=== PATIENT | male | born 1955 | race Caucasian/White ===

== ENCOUNTER 2018-08-19 03:46 | Inpatient (IN) | payer MEDICARE, OTHER, BC ==
[2018-08-19] MEDS ORDERED: SODIUM CHLORIDE 0.9% 1L BAG IV* (03:59)
[2018-08-19 04:14] LABS: ADD MAN DIFF? NO
[2018-08-19 04:18] LABS: WHITE BLOOD COUNT 12.8 10^3/ul (4.8-10.8)
[2018-08-19 04:18] LABS: BASOPHILS % 0.3 % (0.0-2.0); EOSINOPHILS % 0.2 % (0.0-7.0); HEMOGLOBIN 14.1 g/dl (14.0-18.0); LYMPHOCYTES # 1.4 10^3/ul (0.8-2.9); MEAN CORPUSCULAR HGB CONC 34.4 g/dl (32.0-37.0); MEAN PLATELET VOLUME 12.5 fl (7.4-10.4); MONOCYTE # 1.1 10^3/ul (0.3-0.9); MONOCYTES % 8.8 % (0.0-11.0); NEUTROPHIL # 10.2 10^3/ul (1.6-7.5); NEUTROPHILS % 79.4 % (39.0-77.0); PLATELET COUNT 151 10^3/UL (140-415); RED BLOOD COUNT 4.41 10^6/ul (4.70-6.10); RED CELL DISTRIBUTION WIDTH 12.2 % (11.5-14.5)
[2018-08-19] MEDS: ACETAMINOPHEN 325 MG TAB PO ×5 (04:25→22:56)
[2018-08-19 04:33] LABS: ALANINE AMINOTRANSFERASE 35 IU/L (13-69); ALBUMIN 4.5 g/dl (3.3-4.9); ALBUMIN/GLOBULIN RATIO 1.12; ALKALINE PHOSPHATASE 121 IU/L (42-121); ANION GAP 11 (5-13); ASPARTATE AMINO TRANSFERASE 32 IU/L (15-46); BILIRUBIN,INDIRECT 0.7 mg/dl (0-1.1); BILIRUBIN,TOTAL 0.7 mg/dl (0.2-1.3); BLOOD UREA NITROGEN 16 mg/dl (7-20); CALCIUM 9.2 mg/dl (8.4-10.2); CARBON DIOXIDE 25 mmol/L (21-31); CHLORIDE 105 mmol/L (97-110); CREATININE 0.87 mg/dl (0.61-1.24); Estimated GFR > 60 mL/min (>60); GLUCOSE 129 mg/dl (70-220); SODIUM 141 mmol/L (135-144); TOTAL PROTEIN 8.5 g/dl (6.1-8.1)
[2018-08-19 04:40] LABS: INR 1.01; PROTIME 13.4 Sec (11.9-14.9)
[2018-08-19 04:41] LABS: PARTIAL THROMBOPLASTIN TIME 26.5 Sec (23.0-35.0)
[2018-08-19 04:44] LABS: URINE PH (Dip) POC 5.5 (5.0-8.5)
[2018-08-19 04:44] LABS: URINE BLOOD (Dip) POC Trace-intact (NEGATIVE); URINE GLUCOSE (Dip) POC Negative (NEGATIVE); URINE KETONES (Dip) POC Negative (NEGATIVE); URINE LEUKOCYTE EST (Dip) POC Trace (NEGATIVE); URINE NITRITE (Dip) POC Negative (NEGATIVE); URINE TOTAL PROTEIN POC Negative (NEGATIVE)
[2018-08-19 04:45] LABS: TROPONIN-I < 0.012 ng/ml (0.000-0.120)
[2018-08-19 05:09] LABS: ADD UMIC YES; UR ASCORBIC ACID NEGATIVE (NEGATIVE); UR BILIRUBIN (Dip) NEGATIVE (NEGATIVE); UR BLOOD (Dip) 1+ mg/dL (NEGATIVE); UR CLARITY CLEAR (CLEAR); UR COLOR YELLOW (YELLOW); UR GLUCOSE (Dip) NEGATIVE (NEGATIVE); UR KETONES (Dip) NEGATIVE (NEGATIVE); UR LEUKOCYTE ESTERASE (Dip) NEGATIVE Leu/ul (NEGATIVE); UR NITRITE (Dip) NEGATIVE (NEGATIVE); UR RBC 2 /HPF (0-5); UR SPECIFIC GRAVITY (Dip) 1.013 (1.003-1.030); UR TOTAL PROTEIN (Dip) NEGATIVE (NEGATIVE); UR UROBILINOGEN (Dip) NEGATIVE (NEGATIVE); UR WBC 15 /HPF (0-5)
[2018-08-19] MEDS: PIPER-TAZO 3.375 GM IV (PMX) 100 ML IVPB ×4 (07:02→23:43)
[2018-08-19] MEDS: SOD CHLORIDE 0.9% 2,070 ML IV (07:02)
[2018-08-19] MEDS: IBUPROFEN 600 MG TAB PO (07:03)
[2018-08-19 08:47] LABS: LACTIC ACID 2.8 mmol/L (0.5-2.0)
[2018-08-19] MEDS ORDERED: ONDANSETRON 4 MG INJ IV (09:30)
[2018-08-19] MEDS ORDERED: morphine 2 MG INJ IV (09:30)
[2018-08-19] MEDS ORDERED: ZOLPIDEM 5 MG TAB PO (10:00)
[2018-08-19 10:56] LABS: LACTIC ACID 1.9 mmol/L (0.5-2.0)
[2018-08-19] MEDS: SOD CHLORIDE 0.9% 1,000 ML IV ×2 (12:35→20:30)
[2018-08-19] MEDS: PANTOPRAZOLE (EC) 40 MG TAB PO (12:36)
[2018-08-19] MEDS: LISINOPRIL 5 MG TAB GTB (12:37)
[2018-08-19] MEDS: TAMSULOSIN (SR) 0.4 MG CAP PO (20:55)
[2018-08-20] MEDS: ACETAMINOPHEN 325 MG TAB PO ×3 (02:54→17:31)
[2018-08-20] MEDS: PIPER-TAZO 3.375 GM IV (PMX) 100 ML IVPB ×3 (05:45→17:30)
[2018-08-20] MEDS: SOD CHLORIDE 0.9% 1,000 ML IV ×2 (05:45→17:31)
[2018-08-20] MEDS: PANTOPRAZOLE (EC) 40 MG TAB PO (05:45)
[2018-08-20 06:00] LABS: ADD MAN DIFF? NO
[2018-08-20 06:08] LABS: BASOPHIL # 0.1 10^3/ul (0.0-0.1); BASOPHILS % 0.3 % (0.0-2.0); EOSINOPHILS % 0.1 % (0.0-7.0); HEMATOCRIT 36.9 % (42.0-52.0); HEMOGLOBIN 12.6 g/dl (14.0-18.0); LYMPHOCYTES # 0.9 10^3/ul (0.8-2.9); LYMPHOCYTES % 5.9 % (15.0-51.0); MEAN CORPUSCULAR HEMOGLOBIN 32.2 pg (29.0-33.0); MEAN CORPUSCULAR HGB CONC 34.1 g/dl (32.0-37.0); MEAN CORPUSCULAR VOLUME 94.4 fl (82.0-101.0); MEAN PLATELET VOLUME 12.8 fl (7.4-10.4); MONOCYTE # 1.3 10^3/ul (0.3-0.9); MONOCYTES % 8.8 % (0.0-11.0); NEUTROPHIL # 12.7 10^3/ul (1.6-7.5); NEUTROPHILS % 84.5 % (39.0-77.0); PLATELET COUNT 116 10^3/UL (140-415); RED BLOOD COUNT 3.91 10^6/ul (4.70-6.10); RED CELL DISTRIBUTION WIDTH 13.1 % (11.5-14.5)
[2018-08-20 06:08] LABS: WHITE BLOOD COUNT 15.1 10^3/ul (4.8-10.8)
[2018-08-20 06:28] LABS: ALANINE AMINOTRANSFERASE 48 IU/L (13-69); ALBUMIN 3.3 g/dl (3.3-4.9); ALBUMIN/GLOBULIN RATIO 1.13; ALKALINE PHOSPHATASE 92 IU/L (42-121); ANION GAP 5 (5-13); ASPARTATE AMINO TRANSFERASE 44 IU/L (15-46); BILIRUBIN,INDIRECT 0.8 mg/dl (0-1.1); BILIRUBIN,TOTAL 0.8 mg/dl (0.2-1.3); BLOOD UREA NITROGEN 13 mg/dl (7-20); CALCIUM 8.5 mg/dl (8.4-10.2); CARBON DIOXIDE 24 mmol/L (21-31); CHLORIDE 109 mmol/L (97-110); CREATININE 0.87 mg/dl (0.61-1.24); Estimated GFR > 60 mL/min (>60); GLUCOSE 111 mg/dl (70-220); MAGNESIUM 2.1 mg/dl (1.7-2.5); POTASSIUM 3.8 mmol/L (3.5-5.1); SODIUM 138 mmol/L (135-144); TOTAL PROTEIN 6.2 g/dl (6.1-8.1)
[2018-08-20 06:36] LABS: LACTIC ACID 0.9 mmol/L (0.5-2.0)
[2018-08-20] MEDS: LISINOPRIL 5 MG TAB GTB (08:37)
[2018-08-20] MEDS: IBUPROFEN 400 MG TAB GTB ×2 (14:12→21:38)
[2018-08-20] MEDS: TAMSULOSIN (SR) 0.4 MG CAP PO (21:34)
[2018-08-21] MEDS: PIPER-TAZO 3.375 GM IV (PMX) 100 ML IVPB ×4 (00:03→17:45)
[2018-08-21] MEDS: SOD CHLORIDE 0.9% 1,000 ML IV ×3 (02:30→22:30)
[2018-08-21] MEDS: PANTOPRAZOLE (EC) 40 MG TAB PO (05:50)
[2018-08-21 06:13] LABS: WHITE BLOOD COUNT 7.2 10^3/ul (4.8-10.8)
[2018-08-21 06:13] LABS: ABNORMAL IP MESSAGE 1; HEMATOCRIT 36.6 % (42.0-52.0); HEMOGLOBIN 12.4 g/dl (14.0-18.0); MEAN CORPUSCULAR HEMOGLOBIN 31.9 pg (29.0-33.0); MEAN CORPUSCULAR HGB CONC 33.9 g/dl (32.0-37.0); MEAN CORPUSCULAR VOLUME 94.1 fl (82.0-101.0); MEAN PLATELET VOLUME 13.4 fl (7.4-10.4); PLATELET COUNT 108 10^3/UL (140-415); POSITIVE DIFF @See below; RED BLOOD COUNT 3.89 10^6/ul (4.70-6.10); RED CELL DISTRIBUTION WIDTH 13.1 % (11.5-14.5)
[2018-08-21 06:32] LABS: ADD MAN DIFF? YES
[2018-08-21 06:38] LABS: ALANINE AMINOTRANSFERASE 44 IU/L (13-69); ALBUMIN 3.4 g/dl (3.3-4.9); ALBUMIN/GLOBULIN RATIO 0.94; ALKALINE PHOSPHATASE 120 IU/L (42-121); ANION GAP 7 (5-13); ASPARTATE AMINO TRANSFERASE 37 IU/L (15-46); BILIRUBIN,INDIRECT 0.4 mg/dl (0-1.1); BILIRUBIN,TOTAL 0.4 mg/dl (0.2-1.3); BLOOD UREA NITROGEN 13 mg/dl (7-20); CALCIUM 8.6 mg/dl (8.4-10.2); CARBON DIOXIDE 23 mmol/L (21-31); CHLORIDE 114 mmol/L (97-110); Estimated GFR > 60 mL/min (>60); GLUCOSE 113 mg/dl (70-220); MAGNESIUM 2.3 mg/dl (1.7-2.5); POTASSIUM 3.9 mmol/L (3.5-5.1); SODIUM 144 mmol/L (135-144)
[2018-08-21] MEDS: LISINOPRIL 5 MG TAB GTB (08:49)
[2018-08-21 10:50] LABS: ANISOCYTOSIS 1+ (0-0); BAND NEUTROPHILS % (M) 14 % (0-4); BASOPHIL #M 0.2 10^3/ul (0.0-0.0); BASOPHILS % (M) 3 % (0-2); BURR CELLS 1+ (0-0); EOSINOPHILS % (M) 2 % (0-7); LYMPHOCYTES % (M) 15 % (15-51); MONOCYTE #M 0.6 10^3/ul (0.3-0.9); MONOCYTES % (M) 9 % (0-11); MYELOCYTES % (M) 1 % (0-0); PLATELET ESTIMATE DECREASED; POIKILOCYTOSIS 1+ (0-0); REACTIVE LYMPHOCYTES #M 0.4 10^3/ul (0.0-0.0); REACTIVE LYMPHOCYTES% (M) 6 % (0-0); SEG NEUT #M 3.7 10^3/ul (1.6-7.5); SEGMENTED NEUTROPHILS (M) % 50 % (39-77); SMUDGE%M 5 % (0-0)
[2018-08-21] MEDS: ACETAMINOPHEN 325 MG TAB PO (15:17)
[2018-08-21] MEDS: TAMSULOSIN (SR) 0.4 MG CAP PO (21:38)
[2018-08-21] MEDS: hydrALAzine 20 MG INJ IV (21:39)
[2018-08-22] MEDS: PIPER-TAZO 3.375 GM IV (PMX) 100 ML IVPB ×5 (00:07→23:59)
[2018-08-22] MEDS: IBUPROFEN 400 MG TAB GTB ×3 (00:14→16:09)
[2018-08-22 05:38] LABS: ADD MAN DIFF? NO
[2018-08-22] MEDS: PANTOPRAZOLE (EC) 40 MG TAB PO (05:42)
[2018-08-22] MEDS: SOD CHLORIDE 0.9% 1,000 ML IV (05:43)
[2018-08-22 05:55] LABS: WHITE BLOOD COUNT 7.2 10^3/ul (4.8-10.8)
[2018-08-22 05:55] LABS: BASOPHILS % 0.6 % (0.0-2.0); EOSINOPHILS # 0.2 10^3/ul (0.0-0.5); EOSINOPHILS % 2.6 % (0.0-7.0); HEMOGLOBIN 12.7 g/dl (14.0-18.0); LYMPHOCYTES # 2.1 10^3/ul (0.8-2.9); LYMPHOCYTES % 29.5 % (15.0-51.0); MEAN CORPUSCULAR HEMOGLOBIN 31.8 pg (29.0-33.0); MEAN CORPUSCULAR HGB CONC 34.3 g/dl (32.0-37.0); MEAN CORPUSCULAR VOLUME 92.5 fl (82.0-101.0); MEAN PLATELET VOLUME 12.8 fl (7.4-10.4); MONOCYTE # 1.1 10^3/ul (0.3-0.9); MONOCYTES % 15.1 % (0.0-11.0); NEUTROPHIL # 3.8 10^3/ul (1.6-7.5); NEUTROPHILS % 51.9 % (39.0-77.0); PLATELET COUNT 136 10^3/UL (140-415); RED CELL DISTRIBUTION WIDTH 12.9 % (11.5-14.5)
[2018-08-22 06:21] LABS: ANION GAP 10 (5-13); BLOOD UREA NITROGEN 10 mg/dl (7-20); CALCIUM 8.7 mg/dl (8.4-10.2); CARBON DIOXIDE 25 mmol/L (21-31); CHLORIDE 110 mmol/L (97-110); CREATININE 0.82 mg/dl (0.61-1.24); Estimated GFR > 60 mL/min (>60); GLUCOSE 107 mg/dl (70-220); POTASSIUM 3.4 mmol/L (3.5-5.1); SODIUM 145 mmol/L (135-144)
[2018-08-22] MEDS: LISINOPRIL 5 MG TAB GTB (08:21)
[2018-08-22] MEDS: POTASSIUM CHLORIDE (SR) 20 MEQ TAB PO (08:36)
[2018-08-22] MEDS: MULTIVITAMINS THERAPEUTIC TAB PO (08:36)
[2018-08-22] MEDS: ACETAMINOPHEN 325 MG TAB PO ×2 (12:09→20:44)
[2018-08-22] MEDS: TAMSULOSIN (SR) 0.4 MG CAP PO (20:42)
[2018-08-23] MEDS: IBUPROFEN 400 MG TAB GTB ×3 (00:16→20:10)
[2018-08-23] MEDS: PANTOPRAZOLE (EC) 40 MG TAB PO (05:35)
[2018-08-23] MEDS: PIPER-TAZO 3.375 GM IV (PMX) 100 ML IVPB ×3 (05:35→19:49)
[2018-08-23 06:08] LABS: ADD MAN DIFF? NO
[2018-08-23 06:14] LABS: BASOPHIL # 0.1 10^3/ul (0.0-0.1); BASOPHILS % 0.8 % (0.0-2.0); EOSINOPHILS # 0.3 10^3/ul (0.0-0.5); EOSINOPHILS % 4.6 % (0.0-7.0); HEMATOCRIT 36.2 % (42.0-52.0); HEMOGLOBIN 12.3 g/dl (14.0-18.0); LYMPHOCYTES # 2.1 10^3/ul (0.8-2.9); LYMPHOCYTES % 31.3 % (15.0-51.0); MEAN CORPUSCULAR HEMOGLOBIN 31.7 pg (29.0-33.0); MEAN CORPUSCULAR VOLUME 93.3 fl (82.0-101.0); MEAN PLATELET VOLUME 12.7 fl (7.4-10.4); MONOCYTES % 15.5 % (0.0-11.0); NEUTROPHIL # 3.1 10^3/ul (1.6-7.5); NEUTROPHILS % 47.5 % (39.0-77.0); PLATELET COUNT 156 10^3/UL (140-415); RED BLOOD COUNT 3.88 10^6/ul (4.70-6.10); RED CELL DISTRIBUTION WIDTH 13.3 % (11.5-14.5)
[2018-08-23 06:14] LABS: WHITE BLOOD COUNT 6.6 10^3/ul (4.8-10.8)
[2018-08-23 06:41] LABS: ANION GAP 9 (5-13); BLOOD UREA NITROGEN 13 mg/dl (7-20); CALCIUM 8.8 mg/dl (8.4-10.2); CARBON DIOXIDE 24 mmol/L (21-31); CHLORIDE 111 mmol/L (97-110); CREATININE 0.81 mg/dl (0.61-1.24); Estimated GFR > 60 mL/min (>60); GLUCOSE 140 mg/dl (70-220); MAGNESIUM 2.3 mg/dl (1.7-2.5); SODIUM 144 mmol/L (135-144)
[2018-08-23] MEDS: LISINOPRIL 20 MG TAB GTB (09:43)
[2018-08-23] MEDS: MULTIVITAMINS THERAPEUTIC TAB PO (09:43)
[2018-08-23] MEDS: ACETAMINOPHEN 325 MG TAB PO ×2 (09:53→14:57)
[2018-08-23] MEDS: hydrALAzine 20 MG INJ IV (10:59)
[2018-08-23] MEDS: TAMSULOSIN (SR) 0.4 MG CAP PO (21:11)
[2018-08-24] MEDS: PIPER-TAZO 3.375 GM IV (PMX) 100 ML IVPB ×5 (00:33→23:45)
[2018-08-24] MEDS: ACETAMINOPHEN 325 MG TAB PO ×3 (00:50→21:58)
[2018-08-24 05:38] LABS: ADD MAN DIFF? NO
[2018-08-24 05:43] LABS: WHITE BLOOD COUNT 8.4 10^3/ul (4.8-10.8)
[2018-08-24 05:43] LABS: BASOPHIL # 0.1 10^3/ul (0.0-0.1); BASOPHILS % 0.6 % (0.0-2.0); EOSINOPHILS # 0.2 10^3/ul (0.0-0.5); EOSINOPHILS % 2.9 % (0.0-7.0); HEMATOCRIT 38.1 % (42.0-52.0); HEMOGLOBIN 13.2 g/dl (14.0-18.0); LYMPHOCYTES # 2.7 10^3/ul (0.8-2.9); LYMPHOCYTES % 32.5 % (15.0-51.0); MEAN CORPUSCULAR HEMOGLOBIN 31.8 pg (29.0-33.0); MEAN CORPUSCULAR HGB CONC 34.6 g/dl (32.0-37.0); MEAN CORPUSCULAR VOLUME 91.8 fl (82.0-101.0); MONOCYTE # 1.1 10^3/ul (0.3-0.9); MONOCYTES % 12.6 % (0.0-11.0); NEUTROPHIL # 4.3 10^3/ul (1.6-7.5); NEUTROPHILS % 50.8 % (39.0-77.0); PLATELET COUNT 199 10^3/UL (140-415); RED BLOOD COUNT 4.15 10^6/ul (4.70-6.10); RED CELL DISTRIBUTION WIDTH 13.2 % (11.5-14.5)
[2018-08-24] MEDS: PANTOPRAZOLE (EC) 40 MG TAB PO (06:07)
[2018-08-24 06:14] LABS: ANION GAP 10 (5-13); BLOOD UREA NITROGEN 13 mg/dl (7-20); CARBON DIOXIDE 23 mmol/L (21-31); CHLORIDE 110 mmol/L (97-110); CREATININE 0.77 mg/dl (0.61-1.24); Estimated GFR > 60 mL/min (>60); GLUCOSE 104 mg/dl (70-220); POTASSIUM 3.8 mmol/L (3.5-5.1); SODIUM 143 mmol/L (135-144)
[2018-08-24] MEDS: IBUPROFEN 400 MG TAB GTB ×3 (06:17→19:29)
[2018-08-24] MEDS: FUROSEMIDE 20 MG INJ IV (09:21)
[2018-08-24] MEDS: LISINOPRIL 20 MG TAB GTB (09:21)
[2018-08-24] MEDS: MULTIVITAMINS THERAPEUTIC TAB PO (09:21)
[2018-08-24] MEDS: TAMSULOSIN (SR) 0.4 MG CAP PO (21:58)
[2018-08-25 06:07] LABS: ADD MAN DIFF? NO
[2018-08-25 06:08] LABS: BASOPHILS % 0.5 % (0.0-2.0); EOSINOPHILS # 0.3 10^3/ul (0.0-0.5); EOSINOPHILS % 3.4 % (0.0-7.0); HEMOGLOBIN 12.4 g/dl (14.0-18.0); LYMPHOCYTES # 2.7 10^3/ul (0.8-2.9); LYMPHOCYTES % 33.1 % (15.0-51.0); MEAN CORPUSCULAR HEMOGLOBIN 31.4 pg (29.0-33.0); MEAN CORPUSCULAR HGB CONC 33.5 g/dl (32.0-37.0); MEAN CORPUSCULAR VOLUME 93.7 fl (82.0-101.0); MEAN PLATELET VOLUME 11.7 fl (7.4-10.4); MONOCYTE # 0.9 10^3/ul (0.3-0.9); MONOCYTES % 11.7 % (0.0-11.0); NEUTROPHIL # 4.1 10^3/ul (1.6-7.5); NEUTROPHILS % 50.6 % (39.0-77.0); PLATELET COUNT 220 10^3/UL (140-415); RED BLOOD COUNT 3.95 10^6/ul (4.70-6.10); RED CELL DISTRIBUTION WIDTH 13.2 % (11.5-14.5)
[2018-08-25] MEDS: IBUPROFEN 400 MG TAB GTB ×3 (06:20→21:51)
[2018-08-25] MEDS: PANTOPRAZOLE (EC) 40 MG TAB PO (06:20)
[2018-08-25] MEDS: PIPER-TAZO 3.375 GM IV (PMX) 100 ML IVPB ×4 (06:20→23:26)
[2018-08-25 06:41] LABS: ANION GAP 7 (5-13); BLOOD UREA NITROGEN 17 mg/dl (7-20); CALCIUM 9.1 mg/dl (8.4-10.2); CARBON DIOXIDE 29 mmol/L (21-31); CHLORIDE 109 mmol/L (97-110); CREATININE 0.91 mg/dl (0.61-1.24); Estimated GFR > 60 mL/min (>60); GLUCOSE 101 mg/dl (70-220); MAGNESIUM 2.4 mg/dl (1.7-2.5); SODIUM 145 mmol/L (135-144)
[2018-08-25] MEDS: MULTIVITAMINS THERAPEUTIC TAB PO (08:26)
[2018-08-25] MEDS: LISINOPRIL 20 MG TAB GTB (08:26)
[2018-08-25] MEDS: FUROSEMIDE 20 MG INJ IV (08:28)
[2018-08-25] MEDS: ACETAMINOPHEN 325 MG TAB PO (12:16)
[2018-08-25] MEDS: hydrALAzine 20 MG INJ IV (16:03)
[2018-08-25] MEDS: TAMSULOSIN (SR) 0.4 MG CAP PO (21:50)
[2018-08-26] MEDS: IBUPROFEN 400 MG TAB GTB ×3 (03:29→20:41)
[2018-08-26] MEDS: PANTOPRAZOLE (EC) 40 MG TAB PO (05:56)
[2018-08-26] MEDS: PIPER-TAZO 3.375 GM IV (PMX) 100 ML IVPB ×3 (05:56→17:24)
[2018-08-26] MEDS: ACETAMINOPHEN 325 MG TAB PO (05:57)
[2018-08-26 06:29] LABS: ANION GAP 9 (5-13); BLOOD UREA NITROGEN 17 mg/dl (7-20); CARBON DIOXIDE 28 mmol/L (21-31); CHLORIDE 107 mmol/L (97-110); CREATININE 0.84 mg/dl (0.61-1.24); Estimated GFR > 60 mL/min (>60); GLUCOSE 97 mg/dl (70-220); MAGNESIUM 2.5 mg/dl (1.7-2.5); SODIUM 144 mmol/L (135-144)
[2018-08-26] MEDS: MULTIVITAMINS THERAPEUTIC TAB PO (08:44)
[2018-08-26] MEDS: LISINOPRIL 20 MG TAB GTB (08:44)
[2018-08-26] MEDS: CIPROFLOXACIN 500 MG TAB PO (18:43)
[2018-08-26] MEDS: TAMSULOSIN (SR) 0.4 MG CAP PO (20:42)
[2018-08-27] MEDS: PANTOPRAZOLE (EC) 40 MG TAB PO (05:28)
[2018-08-27] MEDS: CIPROFLOXACIN 500 MG TAB PO ×2 (05:28→17:20)
[2018-08-27] MEDS: ACETAMINOPHEN 325 MG TAB PO (05:29)
[2018-08-27 06:18] LABS: ADD MAN DIFF? NO
[2018-08-27 06:44] LABS: WHITE BLOOD COUNT 9.6 10^3/ul (4.8-10.8)
[2018-08-27 06:44] LABS: ABNORMAL IP MESSAGE 1; BASOPHIL # 0.1 10^3/ul (0.0-0.1); BASOPHILS % 0.6 % (0.0-2.0); EOSINOPHILS # 0.2 10^3/ul (0.0-0.5); EOSINOPHILS % 2.1 % (0.0-7.0); HEMOGLOBIN 12.8 g/dl (14.0-18.0); LYMPHOCYTES # 2.7 10^3/ul (0.8-2.9); LYMPHOCYTES % 27.9 % (15.0-51.0); MEAN CORPUSCULAR HEMOGLOBIN 32.6 pg (29.0-33.0); MEAN CORPUSCULAR VOLUME 101.8 fl (82.0-101.0); MEAN PLATELET VOLUME 11.3 fl (7.4-10.4); MONOCYTE # 1.1 10^3/ul (0.3-0.9); MONOCYTES % 10.9 % (0.0-11.0); NEUTROPHIL # 5.5 10^3/ul (1.6-7.5); NEUTROPHILS % 57.4 % (39.0-77.0); PLATELET COUNT 270 10^3/UL (140-415); POSITIVE DIFF @See below; RED BLOOD COUNT 3.93 10^6/ul (4.70-6.10); RED CELL DISTRIBUTION WIDTH 13.7 % (11.5-14.5)
[2018-08-27 07:01] LABS: ANION GAP 10 (5-13); BLOOD UREA NITROGEN 18 mg/dl (7-20); CARBON DIOXIDE 25 mmol/L (21-31); CHLORIDE 109 mmol/L (97-110); CREATININE 0.77 mg/dl (0.61-1.24); Estimated GFR > 60 mL/min (>60); GLUCOSE 120 mg/dl (70-220); POTASSIUM 4.2 mmol/L (3.5-5.1); SODIUM 144 mmol/L (135-144)
[2018-08-27] MEDS: MULTIVITAMINS THERAPEUTIC TAB PO (08:43)
[2018-08-27] MEDS: LISINOPRIL 20 MG TAB PO (08:43)
[2018-08-27] MEDS: TAMSULOSIN (SR) 0.4 MG CAP PO (20:51)
[2018-08-28] MEDS: IBUPROFEN 400 MG TAB GTB ×4 (00:55→22:38)
[2018-08-28] MEDS: CIPROFLOXACIN 500 MG TAB PO ×2 (05:54→18:20)
[2018-08-28] MEDS: PANTOPRAZOLE (EC) 40 MG TAB PO (05:54)
[2018-08-28 06:52] LABS: ADD MAN DIFF? NO
[2018-08-28 06:55] LABS: WHITE BLOOD COUNT 11.7 10^3/ul (4.8-10.8)
[2018-08-28 06:55] LABS: BASOPHIL # 0.1 10^3/ul (0.0-0.1); BASOPHILS % 0.7 % (0.0-2.0); EOSINOPHILS # 0.2 10^3/ul (0.0-0.5); EOSINOPHILS % 1.4 % (0.0-7.0); HEMATOCRIT 39.4 % (42.0-52.0); HEMOGLOBIN 13.3 g/dl (14.0-18.0); LYMPHOCYTES # 3.1 10^3/ul (0.8-2.9); LYMPHOCYTES % 26.8 % (15.0-51.0); MEAN CORPUSCULAR HEMOGLOBIN 32.1 pg (29.0-33.0); MEAN CORPUSCULAR HGB CONC 33.8 g/dl (32.0-37.0); MEAN CORPUSCULAR VOLUME 95.2 fl (82.0-101.0); MEAN PLATELET VOLUME 11.1 fl (7.4-10.4); MONOCYTE # 1.2 10^3/ul (0.3-0.9); MONOCYTES % 10.4 % (0.0-11.0); NEUTROPHILS % 59.7 % (39.0-77.0); PLATELET COUNT 309 10^3/UL (140-415); RED BLOOD COUNT 4.14 10^6/ul (4.70-6.10); RED CELL DISTRIBUTION WIDTH 13.3 % (11.5-14.5)
[2018-08-28 07:21] LABS: ANION GAP 9 (5-13); BLOOD UREA NITROGEN 22 mg/dl (7-20); CALCIUM 9.7 mg/dl (8.4-10.2); CARBON DIOXIDE 27 mmol/L (21-31); CHLORIDE 108 mmol/L (97-110); CREATININE 0.77 mg/dl (0.61-1.24); Estimated GFR > 60 mL/min (>60); GLUCOSE 103 mg/dl (70-220); POTASSIUM 4.1 mmol/L (3.5-5.1); SODIUM 144 mmol/L (135-144)
[2018-08-28] MEDS: LISINOPRIL 20 MG TAB PO (08:24)
[2018-08-28] MEDS: MULTIVITAMINS THERAPEUTIC TAB PO (08:24)
[2018-08-28] MEDS: HYDROCHLOROTHIAZIDE 12.5 MG CAP PO (08:24)
[2018-08-28 08:35] LABS: ERYTHROCYTE SEDIMENTATION RATE 29 mm/Hr (0-20)
[2018-08-28] MEDS: TAMSULOSIN (SR) 0.4 MG CAP PO (21:13)
[2018-08-28] MEDS: hydrALAzine 20 MG INJ IV (21:15)
[2018-08-29] MEDS: IBUPROFEN 400 MG TAB GTB ×2 (04:33→13:47)
[2018-08-29] MEDS: PANTOPRAZOLE (EC) 40 MG TAB PO (06:54)
[2018-08-29] MEDS: LISINOPRIL 20 MG TAB PO ×2 (09:00→21:30)
[2018-08-29] MEDS: MULTIVITAMINS THERAPEUTIC TAB PO (09:00)
[2018-08-29] MEDS: HYDROCHLOROTHIAZIDE 12.5 MG CAP PO (09:01)
[2018-08-29] MEDS: CIPROFLOXACIN 500 MG TAB PO ×2 (11:09→18:07)
[2018-08-29] MEDS: hydrALAzine 20 MG INJ IV (13:46)
[2018-08-29] MEDS: ACETAMINOPHEN 325 MG TAB PO (18:06)
[2018-08-29] MEDS: TAMSULOSIN (SR) 0.4 MG CAP PO (21:29)
[2018-08-30 05:30] LABS: ADD MAN DIFF? NO
[2018-08-30 05:44] LABS: BASOPHIL # 0.1 10^3/ul (0.0-0.1); BASOPHILS % 0.7 % (0.0-2.0); EOSINOPHILS # 0.2 10^3/ul (0.0-0.5); EOSINOPHILS % 1.7 % (0.0-7.0); HEMATOCRIT 38.4 % (42.0-52.0); HEMOGLOBIN 12.9 g/dl (14.0-18.0); LYMPHOCYTES % 22.6 % (15.0-51.0); MEAN CORPUSCULAR HEMOGLOBIN 32.1 pg (29.0-33.0); MEAN CORPUSCULAR HGB CONC 33.6 g/dl (32.0-37.0); MEAN CORPUSCULAR VOLUME 95.5 fl (82.0-101.0); MEAN PLATELET VOLUME 11.2 fl (7.4-10.4); MONOCYTE # 1.2 10^3/ul (0.3-0.9); MONOCYTES % 13.2 % (0.0-11.0); NEUTROPHIL # 5.4 10^3/ul (1.6-7.5); PLATELET COUNT 287 10^3/UL (140-415); RED BLOOD COUNT 4.02 10^6/ul (4.70-6.10); RED CELL DISTRIBUTION WIDTH 13.3 % (11.5-14.5)
[2018-08-30 05:44] LABS: WHITE BLOOD COUNT 8.8 10^3/ul (4.8-10.8)
[2018-08-30] MEDS: CIPROFLOXACIN 500 MG TAB PO (05:47)
[2018-08-30] MEDS: PANTOPRAZOLE (EC) 40 MG TAB PO (05:47)
[2018-08-30 06:11] LABS: ANION GAP 8 (5-13); BLOOD UREA NITROGEN 19 mg/dl (7-20); CALCIUM 9.1 mg/dl (8.4-10.2); CARBON DIOXIDE 26 mmol/L (21-31); CHLORIDE 110 mmol/L (97-110); CREATININE 0.73 mg/dl (0.61-1.24); Estimated GFR > 60 mL/min (>60); GLUCOSE 100 mg/dl (70-220); POTASSIUM 4.6 mmol/L (3.5-5.1); SODIUM 144 mmol/L (135-144)
[2018-08-30] MEDS: LISINOPRIL 20 MG TAB PO (08:09)
[2018-08-30] MEDS: HYDROCHLOROTHIAZIDE 12.5 MG CAP PO (08:09)
[2018-08-30] MEDS: MULTIVITAMINS THERAPEUTIC TAB PO (08:09)
== END 2018-08-30 11:10 | disposition home or self-care (01) | DRG 872 ==
LOC: E/R 03:46 → 6WM 05:48
DX: A41.51 Sepsis due to Escherichia coli [E. coli] (principal); N39.0 Urinary tract infection, site not specified; Q05.9 Spina bifida, unspecified; I10 Essential (primary) hypertension; K21.9 Gastro-esophageal reflux disease without esophagitis; N40.0 Benign prostatic hyperplasia without lower urinary tract symptoms; R51 Headache; E87.6 Hypokalemia
CPT/HCPCS: 36415; 70450; 71045; 80048; 80053; 81001; 81003; 83605; 83735; 84484; 85025; 85610; 85651; 85730; 87040-91; 87086; 93005; 93306; 97162; 97530; 99285-25; G0378